=== PATIENT | female | born 1965 | race Caucasian/White ===

== ENCOUNTER 2019-12-14 09:25 | Outpatient (CLI) | payer OTHER ==
--- NOTE | 2019-12-14 10:18 | MMO ---
Left Breast MAMMO Un[facility]ag [facility] LT+[facility]. CLINICAL HISTORY: Patient is 54 years old and is seen for follow-up at short-interval from prior study. The patient has no family history of breast cancer. The patient has no personal history of cancer. VIEWS: The views performed were: left craniocaudal with tomosynthesis; left craniocaudal spot compression with tomosynthesis; left mediolateral oblique with tomosynthesis; left mediolateral with tomosynthesis; and left mediolateral spot compression with tomosynthesis. FILMS COMPARED: The present examination has been compared to prior imaging studies performed at [facility] on 03/17/2013, 04/15/2018, 04/16/2019 and 04/27/2019. This study has been interpreted with the assistance of computer-aided detection. MAMMOGRAM FINDINGS: There are scattered fibroglandular densities. There are stable calcifications seen in the left breast. IMPRESSION: STABLE CALCIFICATIONS IN THE LEFT BREAST ARE PROBABLY BENIGN. FOLLOW-UP IN 6 MONTHS IS RECOMMENDED. THE RESULTS OF THIS EXAM WERE SENT TO THE PATIENT. ACR BI-RADS Category 3 - Probably benign finding - short interval follow-up suggested. [facility] will notify the patient of the need for additional imaging services. MAMMOGRAPHY NOTE: 1. A negative mammogram report should not delay a biopsy if a dominant of clinically suspicious mass is present. 2. Approximately 10% to 15% of breast cancers are not detected by mammography. 3. Adenosis and dense breasts may obscure an underlying neoplasm. Reported by: JOSS COLE MD Electonically Signed: [id number]
== END 2019-12-14 09:26 | disposition home or self-care (01) ==
LOC: BICMAMMO 09:25
PROVIDERS: ATTEND Obstetrics & Gynecology
DX: R92.8 Other abnormal and inconclusive findings on diagnostic imaging of breast (principal); N63.20 Unspecified lump in the left breast, unspecified quadrant
CPT/HCPCS: G0279

== ENCOUNTER 2022-08-29 16:16 | Inpatient (IN) | payer OTHER, BC ==
[~2022-08-29 16:16] MED LIST: Dexamethasone 20 MG/5 ML VIAL ONE; Iopamidol-370 76% 500 ML 1 ML ONE; Lidocaine 1% PF 5 ML VIAL ONE; Ondansetron PF 4 MG/2 ML Vial ONE; PHENYLEPHRINE-NS 100 MCG/ML 10 ML SYRINGE ONE; PROPOFOL 200 MG/20 ML VIAL ONE; Succinylcholine Chloride 100 MG/5 ML SYRINGE FS ONE; ePHEDrine 50 MG/ML VIAL ONE
[2022-08-29] MEDS ORDERED: Ondansetron PF 4 MG/2 ML Vial ONE (16:19)
[2022-08-29] MEDS ORDERED: CEFAZOLIN 2 GM VIAL ONE (16:29)
[2022-08-29] MEDS ORDERED: Morphine 4 MG/ML VIAL ONE (16:29)
[2022-08-29 16:43] LABS: #Eosinphils 0.2 thou/uL (0.0-0.7); #Lymphocytes 2.4 thou/uL (1.20-3.40); #Monocytes 0.4 thou/uL (0.11-0.59); #Neutrophils 5.5 thou/uL (1.40-6.50); %Basophils 0.6 % (0.0-1.0); %Eosinophils 2.1 % (0.0-10.0); %Monocytes 5.1 % (0.0-10.0); %Neutrophils 64.2 % (42.0-75.0); Hemoglobin 13.9 g/dL (12.0-16.0); Mean Corpuscular HGB CONC 33.8 g/dL (32.0-36.0); Mean Corpuscular Hemoglobin 30.2 pg (27.0-31.0); Mean Corpuscular Volume 89.3 fl (78.0-98.0); Mean Platelet Volume 6.9 fL (7.4-10.4); Platelet Count 274 10x3/uL (130-400); RBC Distribution Width 11.5 % (11.5-14.5); Red Blood Cell (RBC) Count 4.62 mill/uL (4.20-5.40); White Blood Cell (WBC) Count 8.6 10x3/uL (4.8-10.8)
[2022-08-29 16:56] LABS: INR-International Normal Ratio 0.9; Prothrombin Time 12.5 sec (12.0-14.7)
[2022-08-29 16:57] LABS: PTT 23.2 sec (22.9-36.1)
[2022-08-29] MEDS ORDERED: Promethazine HCl 25 MG in Sodium Chloride 0.9% 50 ML IVPB SCH (17:15)
[2022-08-29] MEDS ORDERED: Ketamine 50 MG/ML (10ML VIAL) ONE (17:19)
[2022-08-29 17:20] LABS: ALT (SGPT) 86 U/L (8-55); AST (SGOT) 177 U/L (5-34); Albumin 4.5 g/dL (3.5-5.0); Alkaline Phosphatase 97 U/L (40-110); Anion Gap 18 mmol/L (10-20); BUN (Urea Nitrogen) 15 mg/dL (9.8-20.1); Bilirubin, Total 0.6 mg/dL (0.2-1.2); Calc. Creatinine Clearance 144 mL/min (70-130); Calcium 9.9 mg/dL (7.8-10.44); Carbon Dioxide 20 mmol/L (22-29); Chloride 106 mmol/L (98-107); Estimated GFR 86; Globulin 3.1 g/dL (2.4-3.5); Glucose 134 mg/dL (70-105); Lipase 28 U/L (8-78); Potassium 3.7 mmol/L (3.5-5.1); Protein, Total 7.6 g/dL (6.0-8.3); Sodium 140 mmol/L (136-145)
[2022-08-29] MEDS ORDERED: TETANUS, DIPHTHERIA TOX,ADULT (TDVAX) 0.5 ML VIAL IM ONE (18:13)
[2022-08-29] MEDS ORDERED: Dextrose 50% Abboject 50 ML SYRINGE SLOW IVP PRN (18:13)
[2022-08-29] MEDS ORDERED: Dextrose 5% in Water 1,000 ML IV PRN (18:13)
[2022-08-29] MEDS ORDERED: Promethazine HCl 25 MG/ML VIAL IM PRN ×2 (18:14→22:44)
[2022-08-29] MEDS ORDERED: Ondansetron PF 4 MG/2 ML Vial IVP PRN (18:14)
[2022-08-29] MEDS ORDERED: Ondansetron ODT 4 MG TAB PO PRN (18:14)
[2022-08-29] MEDS ORDERED: HumaLOG 300 UNITS/3 ML VIAL SC PRN (18:14)
[2022-08-29] MEDS ORDERED: Labetalol HCl 100 MG/20 ML VIAL SLOW IVP PRN ×2 (18:18→18:21)
[2022-08-29] MEDS ORDERED: hydrALAZINE 20 MG/ML VIAL SLOW IVP PRN (18:21)
[2022-08-29] MEDS ORDERED: Boostrix 0.5 ML (Tdap) VIAL (>/=7 yrs of age) ONE (18:42)
[2022-08-29] MEDS ORDERED: traMADol HCl 50 MG TAB PO SCH (18:45)
[2022-08-29] MEDS ORDERED: Acetaminophen 500 MG TAB PO SCH (18:45)
[2022-08-29] MEDS ORDERED: fentaNYL PF 100 MCG/2 ML SYRINGE ONE ×2 (19:24→23:21)
[2022-08-29] MEDS ORDERED: Neomycin-Polymyxin 1 ML AMP ONE (19:53)
[2022-08-29 20:03] LABS: SARS-CoV-2 NAA Rapid Test Not Detected (NotDetected)
[2022-08-29] MEDS ORDERED: Meperidine HCl/PF 25 MG/ML VIAL SLOW IVP PRN (22:44)
[2022-08-29] MEDS ORDERED: Ondansetron HCl/PF 4 MG/2 ML Vial IVP PRN (22:44)
[2022-08-29] MEDS ORDERED: cefTRIAXone\\ROCEPHIN 2 GM in Sodium Chloride 0.9% 100 ML IVPB SCH (22:45)
[2022-08-29] MEDS ORDERED: Fentanyl 100 MCG/2 ML VIAL ONE (23:59)
[2022-08-30 02:01] VITALS: BMI 46.0
[2022-08-30] MEDS: Famotidine 20 MG TAB PO SCH ×3 (02:31→21:46)
[2022-08-30] MEDS: Gabapentin 300 MG CAP PO SCH ×4 (02:31→21:46)
[2022-08-30] MEDS: Ibuprofen 200 MG TAB PO SCH ×4 (02:31→21:47)
[2022-08-30] MEDS: traMADol HCl 50 MG TAB PO SCH ×4 (02:32→17:41)
[2022-08-30] MEDS: Acetaminophen 500 MG TAB PO SCH ×4 (02:32→17:40)
[2022-08-30] MEDS: Morphine 2 MG/ML VIAL SLOW IVP PRN ×2 (02:50→16:43)
[2022-08-30] MEDS: cefTRIAXone\\ROCEPHIN 2 GM in Sodium Chloride 0.9% 100 ML IVPB SCH (02:53)
[2022-08-30 06:04] LABS: #Lymphocytes 0.7 thou/uL (1.20-3.40); #Monocytes 0.3 thou/uL (0.11-0.59); #Neutrophils 9.2 thou/uL (1.40-6.50); %Eosinophils 0.1 % (0.0-10.0); %Lymphocytes 6.9 % (21.0-51.0); %Monocytes 2.9 % (0.0-10.0); Hemoglobin 11.6 g/dL (12.0-16.0); Mean Corpuscular HGB CONC 33.9 g/dL (32.0-36.0); Mean Corpuscular Hemoglobin 30.7 pg (27.0-31.0); Mean Corpuscular Volume 90.5 fl (78.0-98.0); Platelet Count 223 10x3/uL (130-400); RBC Distribution Width 11.6 % (11.5-14.5); Red Blood Cell (RBC) Count 3.78 mill/uL (4.20-5.40); White Blood Cell (WBC) Count 10.3 10x3/uL (4.8-10.8)
[2022-08-30 06:29] LABS: Anion Gap 15 mmol/L (10-20); BUN (Urea Nitrogen) 16 mg/dL (9.8-20.1); Calc. Creatinine Clearance 122 mL/min (70-130); Carbon Dioxide 25 mmol/L (22-29); Chloride 103 mmol/L (98-107); Estimated GFR 70; Glucose 226 mg/dL (70-105); Magnesium 1.8 mg/dL (1.6-2.6); Phosphorus 2.3 mg/dL (2.3-4.7); Potassium 4.3 mmol/L (3.5-5.1); Sodium 139 mmol/L (136-145)
[2022-08-30] MEDS ORDERED: PHOS-NAK 1 PKT PACK PO SCH (08:00)
[2022-08-30] MEDS ORDERED: Magnesium 2 GM/50 ML(in water) 2 GM in Premix Bag 1 BAG IVPB SCH (08:00)
[2022-08-30] MEDS ORDERED: Insulin Regular 300 UNITS/3 ML VIAL SC PRN ×2 (16:01)
[2022-08-30] MEDS: traMADol HCl 50 MG TAB PO PRN (21:46)
[2022-08-31] MEDS: cefTRIAXone\\ROCEPHIN 2 GM in Sodium Chloride 0.9% 100 ML IVPB SCH (03:39)
[2022-08-31 06:22] LABS: #Eosinphils 0.1 thou/uL (0.0-0.7); #Lymphocytes 1.6 thou/uL (1.20-3.40); #Monocytes 0.8 thou/uL (0.11-0.59); #Neutrophils 6.4 thou/uL (1.40-6.50); %Basophils 0.4 % (0.0-1.0); %Eosinophils 0.9 % (0.0-10.0); %Lymphocytes 18.4 % (21.0-51.0); %Monocytes 8.6 % (0.0-10.0); %Neutrophils 71.8 % (42.0-75.0); Hemoglobin 9.8 g/dL (12.0-16.0); Mean Corpuscular HGB CONC 33.4 g/dL (32.0-36.0); Mean Corpuscular Hemoglobin 30.7 pg (27.0-31.0); Mean Corpuscular Volume 91.9 fl (78.0-98.0); Platelet Count 186 10x3/uL (130-400); RBC Distribution Width 11.6 % (11.5-14.5); White Blood Cell (WBC) Count 8.9 10x3/uL (4.8-10.8)
[2022-08-31 06:44] LABS: Anion Gap 14 mmol/L (10-20); BUN (Urea Nitrogen) 25 mg/dL (9.8-20.1); Calc. Creatinine Clearance 122 mL/min (70-130); Carbon Dioxide 24 mmol/L (22-29); Chloride 105 mmol/L (98-107); Estimated GFR 70; Glucose 167 mg/dL (70-105); Magnesium 2.4 mg/dL (1.6-2.6); Phosphorus 4.6 mg/dL (2.3-4.7); Sodium 139 mmol/L (136-145)
[2022-08-31] MEDS: Acetaminophen 500 MG TAB PO SCH ×4 (06:45→18:22)
[2022-08-31] MEDS: traMADol HCl 50 MG TAB PO SCH ×4 (06:46→18:24)
[2022-08-31] MEDS: Ibuprofen 200 MG TAB PO SCH ×3 (06:46→21:43)
[2022-08-31] MEDS: Gabapentin 300 MG CAP PO SCH ×3 (09:40→21:42)
[2022-08-31] MEDS: Famotidine 20 MG TAB PO SCH ×2 (09:41→21:43)
[2022-08-31] MEDS: Ezetimibe 10 MG TAB PO SCH (09:46)
[2022-08-31] MEDS: Losartan 25 MG TAB PO SCH (09:46)
[2022-08-31] MEDS: PARoxetine 20 MG TAB PO SCH (09:46)
[2022-08-31] MEDS: Bupropion 150 MG XL TAB PO SCH (09:47)
[2022-08-31] MEDS: Nebivolol HCl 5 MG TAB PO SCH (09:47)
[2022-08-31] MEDS: Senokot S 8.6-50 MG TAB PO SCH (21:43)
[2022-08-31] MEDS: traMADol HCl 50 MG TAB PO PRN (21:49)
[2022-09-01] MEDS: Acetaminophen 500 MG TAB PO SCH ×5 (00:17→23:47)
[2022-09-01] MEDS: traMADol HCl 50 MG TAB PO SCH ×5 (00:17→23:47)
[2022-09-01] MEDS: cefTRIAXone\\ROCEPHIN 2 GM in Sodium Chloride 0.9% 100 ML IVPB SCH (03:42)
[2022-09-01] MEDS: Ibuprofen 200 MG TAB PO SCH (04:35)
[2022-09-01 06:19] LABS: #Eosinphils 0.3 thou/uL (0.0-0.7); #Lymphocytes 2.2 thou/uL (1.20-3.40); #Monocytes 0.5 thou/uL (0.11-0.59); #Neutrophils 5.2 thou/uL (1.40-6.50); %Basophils 0.5 % (0.0-1.0); %Eosinophils 4.1 % (0.0-10.0); %Lymphocytes 26.6 % (21.0-51.0); %Monocytes 6.2 % (0.0-10.0); %Neutrophils 62.6 % (42.0-75.0); Hemoglobin 9.9 g/dL (12.0-16.0); Mean Corpuscular HGB CONC 33.6 g/dL (32.0-36.0); Mean Corpuscular Hemoglobin 30.8 pg (27.0-31.0); Mean Corpuscular Volume 91.7 fl (78.0-98.0); Platelet Count 192 10x3/uL (130-400); RBC Distribution Width 11.6 % (11.5-14.5); White Blood Cell (WBC) Count 8.3 10x3/uL (4.8-10.8)
[2022-09-01 06:29] LABS: Anion Gap 15 mmol/L (10-20); BUN (Urea Nitrogen) 23 mg/dL (9.8-20.1); Calc. Creatinine Clearance 143 mL/min (70-130); Calcium 8.9 mg/dL (7.8-10.44); Carbon Dioxide 25 mmol/L (22-29); Chloride 105 mmol/L (98-107); Estimated GFR 85; Glucose 135 mg/dL (70-105); Magnesium 2.1 mg/dL (1.6-2.6); Phosphorus 3.8 mg/dL (2.3-4.7); Potassium 4.2 mmol/L (3.5-5.1); Sodium 141 mmol/L (136-145)
[2022-09-01] MEDS: Polyethylene Glycol 3350 17 GM Packet PO SCH (07:40)
[2022-09-01] MEDS: Losartan 25 MG TAB PO SCH (07:41)
[2022-09-01] MEDS: Milk Of Magnesia 30 ML UDCUP PO SCH (07:41)
[2022-09-01] MEDS: PARoxetine 20 MG TAB PO SCH (07:42)
[2022-09-01] MEDS: Famotidine 20 MG TAB PO SCH ×2 (07:42→20:38)
[2022-09-01] MEDS: Bisacodyl 10 MG SUPP PR SCH (07:42)
[2022-09-01] MEDS: Bupropion 150 MG XL TAB PO SCH (07:43)
[2022-09-01] MEDS: Gabapentin 300 MG CAP PO SCH ×3 (07:43→20:38)
[2022-09-01] MEDS: Senokot S 8.6-50 MG TAB PO SCH ×2 (07:44→20:38)
[2022-09-01] MEDS: Ezetimibe 10 MG TAB PO SCH (07:45)
[2022-09-01] MEDS: Nebivolol HCl 5 MG TAB PO SCH (07:47)
[2022-09-01] MEDS: Ibuprofen 200 MG TAB PO PRN (14:49)
[2022-09-01] MEDS: traMADol HCl 50 MG TAB PO PRN (16:02)
[2022-09-01] MEDS: Cyclobenzaprine 10 MG TAB PO PRN (21:39)
[2022-09-02 05:58] LABS: #Eosinphils 0.3 thou/uL (0.0-0.7); %Eosinophils 3.7 % (0.0-10.0); %Monocytes 5.7 % (0.0-10.0); RBC Distribution Width 11.6 % (11.5-14.5)
[2022-09-02] MEDS: Cyclobenzaprine 10 MG TAB PO PRN ×2 (06:22→20:35)
[2022-09-02] MEDS: Acetaminophen 500 MG TAB PO SCH ×4 (06:22→23:18)
[2022-09-02] MEDS: traMADol HCl 50 MG TAB PO SCH ×4 (06:24→23:19)
[2022-09-02 06:32] LABS: #Lymphocytes 1.7 thou/uL (1.20-3.40); #Monocytes 0.4 thou/uL (0.11-0.59); #Neutrophils 4.8 thou/uL (1.40-6.50); %Basophils 0.2 % (0.0-1.0); %Lymphocytes 23.2 % (21.0-51.0); %Neutrophils 67.2 % (42.0-75.0); Mean Corpuscular HGB CONC 32.8 g/dL (32.0-36.0); Mean Corpuscular Volume 91.5 fl (78.0-98.0); Mean Platelet Volume 7.1 fL (7.4-10.4); Platelet Count 219 10x3/uL (130-400); Red Blood Cell (RBC) Count 3.32 mill/uL (4.20-5.40); White Blood Cell (WBC) Count 7.1 10x3/uL (4.8-10.8)
[2022-09-02] MEDS: Polyethylene Glycol 3350 17 GM Packet PO SCH (08:58)
[2022-09-02] MEDS: Losartan 25 MG TAB PO SCH (09:00)
[2022-09-02] MEDS: Senokot S 8.6-50 MG TAB PO SCH ×2 (09:00→20:33)
[2022-09-02] MEDS: PARoxetine 20 MG TAB PO SCH (09:00)
[2022-09-02] MEDS: Bupropion 150 MG XL TAB PO SCH (09:01)
[2022-09-02] MEDS: Ezetimibe 10 MG TAB PO SCH (09:01)
[2022-09-02] MEDS: Famotidine 20 MG TAB PO SCH ×2 (09:01→20:34)
[2022-09-02] MEDS: Nebivolol HCl 5 MG TAB PO SCH (09:01)
[2022-09-02] MEDS: Gabapentin 300 MG CAP PO SCH ×3 (09:02→20:34)
[2022-09-02] MEDS: Ibuprofen 200 MG TAB PO PRN (09:02)
[2022-09-02] MEDS: traMADol HCl 50 MG TAB PO PRN ×2 (09:03→15:31)
[2022-09-02] MEDS: Milk Of Magnesia 30 ML UDCUP PO SCH (09:05)
[2022-09-02] MEDS: Bisacodyl 10 MG SUPP PR SCH (09:06)
[2022-09-02] MEDS: Lidocaine 5% Patch TD SCH (21:22)
[2022-09-03] MEDS: Acetaminophen 500 MG TAB PO SCH ×4 (05:42→23:47)
[2022-09-03] MEDS: traMADol HCl 50 MG TAB PO SCH ×4 (05:43→23:47)
[2022-09-03] MEDS: Nebivolol HCl 5 MG TAB PO SCH (07:34)
[2022-09-03] MEDS: Losartan 25 MG TAB PO SCH (07:35)
[2022-09-03] MEDS: Senokot S 8.6-50 MG TAB PO SCH ×2 (08:34→19:48)
[2022-09-03] MEDS: Bupropion 150 MG XL TAB PO SCH (08:34)
[2022-09-03] MEDS: Polyethylene Glycol 3350 17 GM Packet PO SCH (08:34)
[2022-09-03] MEDS: Milk Of Magnesia 30 ML UDCUP PO SCH (08:34)
[2022-09-03] MEDS: Famotidine 20 MG TAB PO SCH ×2 (08:34→20:59)
[2022-09-03] MEDS: Gabapentin 300 MG CAP PO SCH ×3 (08:35→20:59)
[2022-09-03] MEDS: Ezetimibe 10 MG TAB PO SCH (08:35)
[2022-09-03] MEDS: Ibuprofen 200 MG TAB PO PRN ×2 (08:35→16:45)
[2022-09-03] MEDS: PARoxetine 20 MG TAB PO SCH (08:35)
[2022-09-03] MEDS: Transdermal Patch Removal TOP SCH (08:36)
[2022-09-03] MEDS: Bisacodyl 10 MG SUPP PR SCH (13:01)
[2022-09-03] MEDS: Lidocaine 5% Patch TD SCH (20:59)
[2022-09-04] MEDS: traMADol HCl 50 MG TAB PO SCH ×4 (06:13→20:55)
[2022-09-04] MEDS: Acetaminophen 500 MG TAB PO SCH ×4 (06:13→23:11)
[2022-09-04] MEDS: Nebivolol HCl 5 MG TAB PO SCH (09:45)
[2022-09-04] MEDS: Gabapentin 300 MG CAP PO SCH ×3 (09:46→20:52)
[2022-09-04] MEDS: Ezetimibe 10 MG TAB PO SCH (09:46)
[2022-09-04] MEDS: Bupropion 150 MG XL TAB PO SCH (09:46)
[2022-09-04] MEDS: PARoxetine 20 MG TAB PO SCH (09:46)
[2022-09-04] MEDS: Famotidine 20 MG TAB PO SCH ×2 (09:46→20:52)
[2022-09-04] MEDS: Losartan 25 MG TAB PO SCH (09:46)
[2022-09-04] MEDS: Ibuprofen 200 MG TAB PO PRN ×2 (09:47→20:55)
[2022-09-04] MEDS: Milk Of Magnesia 30 ML UDCUP PO SCH (09:48)
[2022-09-04] MEDS: Transdermal Patch Removal TOP SCH (09:48)
[2022-09-04] MEDS: Senokot S 8.6-50 MG TAB PO SCH ×2 (09:48→20:52)
[2022-09-04] MEDS: Bisacodyl 10 MG SUPP PR SCH (09:48)
[2022-09-04] MEDS: Polyethylene Glycol 3350 17 GM Packet PO SCH (09:52)
[2022-09-04] MEDS: Cyclobenzaprine 10 MG TAB PO PRN (20:55)
[2022-09-04] MEDS: Lidocaine 5% Patch TD SCH (20:56)
[2022-09-05] MEDS: Acetaminophen 500 MG TAB PO SCH ×3 (04:52→18:25)
[2022-09-05] MEDS: traMADol HCl 50 MG TAB PO SCH ×3 (04:52→18:25)
[2022-09-05] MEDS: Bisacodyl 10 MG SUPP PR SCH (09:01)
[2022-09-05] MEDS: Ezetimibe 10 MG TAB PO SCH (09:01)
[2022-09-05] MEDS: Senokot S 8.6-50 MG TAB PO SCH ×2 (09:02→20:23)
[2022-09-05] MEDS: Milk Of Magnesia 30 ML UDCUP PO SCH (09:02)
[2022-09-05] MEDS: Nebivolol HCl 5 MG TAB PO SCH (10:03)
[2022-09-05] MEDS ORDERED: HYDROmorphone 0.5 MG/0.5 ML SYRINGE ONE (10:26)
[2022-09-05] MEDS: Famotidine 20 MG TAB PO SCH ×2 (10:55→20:24)
[2022-09-05] MEDS: Gabapentin 300 MG CAP PO SCH ×3 (10:55→20:24)
[2022-09-05] MEDS: Transdermal Patch Removal TOP SCH (10:56)
[2022-09-05] MEDS ORDERED: Sodium Chloride 0.9% 100 ML ONE (12:09)
[2022-09-05] MEDS ORDERED: CEFAZOLIN 2 GM VIAL ONE (12:09)
[2022-09-05] MEDS ORDERED: Promethazine HCl 25 MG/ML VIAL ONE (12:20)
[2022-09-05] MEDS ORDERED: PROPOFOL 200 MG/20 ML VIAL ONE (12:20)
[2022-09-05] MEDS ORDERED: Metoclopramide HCl 10 MG/2 ML VIAL ONE (12:20)
[2022-09-05] MEDS ORDERED: Lidocaine 1% PF 5 ML VIAL ONE (12:20)
[2022-09-05] MEDS ORDERED: Ondansetron PF 4 MG/2 ML Vial ONE (12:20)
[2022-09-05] MEDS ORDERED: Ketorolac Tromethamine 30 MG/ML VIAL ONE (12:20)
[2022-09-05] MEDS ORDERED: CEFAZOLIN 2 GM in Sodium Chloride 0.9% 100 ML IVPB SCH (12:30)
[2022-09-05] MEDS: Bupropion 150 MG XL TAB PO SCH (12:47)
[2022-09-05] MEDS: PARoxetine 20 MG TAB PO SCH (12:47)
[2022-09-05] MEDS: Losartan 25 MG TAB PO SCH (12:47)
[2022-09-05] MEDS ORDERED: Metoprolol Tartrate 5 MG/5 ML VIAL ONE (15:20)
[2022-09-05] MEDS ORDERED: Fentanyl 100 MCG/2 ML VIAL ONE (15:29)
[2022-09-05] MEDS ORDERED: hydrALAZINE 20 MG/ML VIAL ONE (15:42)
[2022-09-05] MEDS ORDERED: Promethazine HCl 25 MG/ML VIAL IM/IV PRN (15:45)
[2022-09-05] MEDS ORDERED: Ondansetron HCl/PF 4 MG/2 ML Vial IVP PRN (15:45)
[2022-09-05] MEDS: Ibuprofen 200 MG TAB PO PRN (20:24)
[2022-09-05] MEDS: Cyclobenzaprine 10 MG TAB PO PRN (20:24)
[2022-09-05] MEDS: Lidocaine 5% Patch TD SCH (21:14)
[2022-09-06] MEDS: traMADol HCl 50 MG TAB PO SCH ×3 (00:18→12:40)
[2022-09-06] MEDS: Acetaminophen 500 MG TAB PO SCH ×3 (00:19→12:41)
[2022-09-06 06:37] LABS: #Eosinphils 0.2 thou/uL (0.0-0.7); #Monocytes 0.8 thou/uL (0.11-0.59); #Neutrophils 8.2 thou/uL (1.40-6.50); %Monocytes 8.1 % (0.0-10.0); %Neutrophils 79.9 % (42.0-75.0); Hemoglobin 9.6 g/dL (12.0-16.0); Mean Corpuscular HGB CONC 32.3 g/dL (32.0-36.0); Mean Corpuscular Hemoglobin 30.1 pg (27.0-31.0); Mean Corpuscular Volume 93.3 fl (78.0-98.0); Mean Platelet Volume 6.6 fL (7.4-10.4); Platelet Count 266 10x3/uL (130-400); RBC Distribution Width 12.3 % (11.5-14.5); White Blood Cell (WBC) Count 10.2 10x3/uL (4.8-10.8)
[2022-09-06 06:59] LABS: Anion Gap 14 mmol/L (10-20); BUN (Urea Nitrogen) 14 mg/dL (9.8-20.1); Calc. Creatinine Clearance 150 mL/min (70-130); Carbon Dioxide 24 mmol/L (22-29); Chloride 103 mmol/L (98-107); Estimated GFR 90; Glucose 138 mg/dL (70-105); Magnesium 2.1 mg/dL (1.6-2.6); Phosphorus 3.2 mg/dL (2.3-4.7); Potassium 4.3 mmol/L (3.5-5.1); Sodium 137 mmol/L (136-145)
[2022-09-06] MEDS: Ibuprofen 200 MG TAB PO PRN (07:41)
[2022-09-06] MEDS: Cyclobenzaprine 10 MG TAB PO PRN (07:41)
[2022-09-06] MEDS: Losartan 25 MG TAB PO SCH (09:06)
[2022-09-06] MEDS: Nebivolol HCl 5 MG TAB PO SCH (09:06)
[2022-09-06] MEDS: Gabapentin 300 MG CAP PO SCH ×3 (09:07→21:08)
[2022-09-06] MEDS: traMADol HCl 50 MG TAB PO PRN (09:07)
[2022-09-06] MEDS: Famotidine 20 MG TAB PO SCH ×2 (09:07→21:09)
[2022-09-06] MEDS: Bupropion 150 MG XL TAB PO SCH (09:08)
[2022-09-06] MEDS: PARoxetine 20 MG TAB PO SCH (09:08)
[2022-09-06] MEDS: Ascorbic Acid 500 mg Chewable Tablet PO SCH ×2 (09:08→21:09)
[2022-09-06] MEDS: Ezetimibe 10 MG TAB PO SCH (09:08)
[2022-09-06] MEDS: Milk Of Magnesia 30 ML UDCUP PO SCH (09:09)
[2022-09-06] MEDS: Bisacodyl 10 MG SUPP PR SCH (09:09)
[2022-09-06] MEDS: Senokot S 8.6-50 MG TAB PO SCH ×2 (09:09→21:09)
[2022-09-06] MEDS: Transdermal Patch Removal TOP SCH (09:09)
[2022-09-06] MEDS: Morphine 2 MG/ML VIAL SLOW IVP PRN (10:43)
[2022-09-06] MEDS: Acetaminophen/Codeine 30-300mg Tablet PO SCH (18:52)
[2022-09-06] MEDS: Ferrous Sulfate 325 MG TAB PO SCH (18:53)
[2022-09-06] MEDS: Lidocaine 5% Patch TD SCH (21:09)
[2022-09-07] MEDS: Acetaminophen/Codeine 30-300mg Tablet PO SCH ×4 (00:40→16:56)
[2022-09-07 06:00] LABS: Hemoglobin 9.4 g/dL (12.0-16.0)
[2022-09-07] MEDS: PARoxetine 20 MG TAB PO SCH (08:18)
[2022-09-07] MEDS: Gabapentin 300 MG CAP PO SCH ×3 (08:18→21:59)
[2022-09-07] MEDS: Senokot S 8.6-50 MG TAB PO SCH ×2 (08:18→22:30)
[2022-09-07] MEDS: Ferrous Sulfate 325 MG TAB PO SCH ×2 (08:18→16:56)
[2022-09-07] MEDS: Losartan 25 MG TAB PO SCH (08:19)
[2022-09-07] MEDS: Bupropion 150 MG XL TAB PO SCH (08:19)
[2022-09-07] MEDS: Ascorbic Acid 500 mg Chewable Tablet PO SCH ×2 (08:19→21:59)
[2022-09-07] MEDS: Nebivolol HCl 5 MG TAB PO SCH (08:19)
[2022-09-07] MEDS: Famotidine 20 MG TAB PO SCH ×2 (08:19→21:59)
[2022-09-07] MEDS: Milk Of Magnesia 30 ML UDCUP PO SCH (08:20)
[2022-09-07] MEDS: Ezetimibe 10 MG TAB PO SCH (08:20)
[2022-09-07] MEDS: Bisacodyl 10 MG SUPP PR SCH (08:20)
[2022-09-07] MEDS: Transdermal Patch Removal TOP SCH (08:20)
[2022-09-07] MEDS: Cyclobenzaprine 10 MG TAB PO PRN (21:59)
[2022-09-07] MEDS: Lidocaine 5% Patch TD SCH (22:00)
[2022-09-08] MEDS: Acetaminophen/Codeine 30-300mg Tablet PO SCH ×4 (00:07→17:31)
[2022-09-08] MEDS: traMADol HCl 50 MG TAB PO PRN ×2 (06:27→22:10)
[2022-09-08] MEDS: Ibuprofen 200 MG TAB PO PRN (06:27)
[2022-09-08] MEDS: Morphine 2 MG/ML VIAL SLOW IVP PRN (06:31)
[2022-09-08] MEDS: Ferrous Sulfate 325 MG TAB PO SCH ×2 (10:13→17:33)
[2022-09-08] MEDS: Ascorbic Acid 500 mg Chewable Tablet PO SCH ×2 (10:14→22:11)
[2022-09-08] MEDS: Bisacodyl 10 MG SUPP PR SCH (10:14)
[2022-09-08] MEDS: Transdermal Patch Removal TOP SCH (10:15)
[2022-09-08] MEDS: Senokot S 8.6-50 MG TAB PO SCH ×2 (10:16→22:10)
[2022-09-08] MEDS: Famotidine 20 MG TAB PO SCH ×2 (10:16→22:10)
[2022-09-08] MEDS: PARoxetine 20 MG TAB PO SCH (10:16)
[2022-09-08] MEDS: Losartan 25 MG TAB PO SCH (10:17)
[2022-09-08] MEDS: Nebivolol HCl 5 MG TAB PO SCH (10:17)
[2022-09-08] MEDS: Gabapentin 300 MG CAP PO SCH ×3 (10:18→22:10)
[2022-09-08] MEDS: Bupropion 150 MG XL TAB PO SCH (10:18)
[2022-09-08] MEDS: Ezetimibe 10 MG TAB PO SCH (10:18)
[2022-09-08] MEDS: Milk Of Magnesia 30 ML UDCUP PO SCH (10:19)
[2022-09-08] MEDS: Cyclobenzaprine 10 MG TAB PO PRN (22:09)
[2022-09-08] MEDS: Lidocaine 5% Patch TD SCH (22:11)
[2022-09-09] MEDS: Acetaminophen/Codeine 30-300mg Tablet PO SCH ×4 (00:36→18:52)
[2022-09-09] MEDS: Losartan 25 MG TAB PO SCH (10:25)
[2022-09-09] MEDS: Bupropion 150 MG XL TAB PO SCH (10:25)
[2022-09-09] MEDS: PARoxetine 20 MG TAB PO SCH (10:26)
[2022-09-09] MEDS: Ascorbic Acid 500 mg Chewable Tablet PO SCH ×2 (10:26→21:21)
[2022-09-09] MEDS: Famotidine 20 MG TAB PO SCH ×2 (10:26→21:20)
[2022-09-09] MEDS: Gabapentin 300 MG CAP PO SCH ×3 (10:26→21:20)
[2022-09-09] MEDS: Ezetimibe 10 MG TAB PO SCH (10:26)
[2022-09-09] MEDS: Ferrous Sulfate 325 MG TAB PO SCH ×2 (10:26→18:53)
[2022-09-09] MEDS: Nebivolol HCl 5 MG TAB PO SCH (10:26)
[2022-09-09] MEDS: Transdermal Patch Removal TOP SCH (10:27)
[2022-09-09] MEDS: Milk Of Magnesia 30 ML UDCUP PO SCH (10:27)
[2022-09-09] MEDS: Senokot S 8.6-50 MG TAB PO SCH ×2 (10:27→21:21)
[2022-09-09] MEDS: Lidocaine 5% Patch TD SCH (21:21)
[2022-09-10] MEDS: Acetaminophen/Codeine 30-300mg Tablet PO SCH ×2 (00:27→06:36)
[2022-09-10] MEDS: Nebivolol HCl 5 MG TAB PO SCH (10:05)
[2022-09-10] MEDS: Famotidine 20 MG TAB PO SCH ×2 (10:06→20:05)
[2022-09-10] MEDS: Ezetimibe 10 MG TAB PO SCH (10:06)
[2022-09-10] MEDS: PARoxetine 20 MG TAB PO SCH (10:06)
[2022-09-10] MEDS: Losartan 25 MG TAB PO SCH (10:06)
[2022-09-10] MEDS: Gabapentin 300 MG CAP PO SCH ×3 (10:07→20:05)
[2022-09-10] MEDS: Ferrous Sulfate 325 MG TAB PO SCH ×2 (10:07→18:30)
[2022-09-10] MEDS: Bupropion 150 MG XL TAB PO SCH (10:07)
[2022-09-10] MEDS: Ascorbic Acid 500 mg Chewable Tablet PO SCH ×2 (10:07→20:05)
[2022-09-10] MEDS: Senokot S 8.6-50 MG TAB PO SCH ×2 (10:08→20:05)
[2022-09-10] MEDS: Transdermal Patch Removal TOP SCH (10:08)
[2022-09-10] MEDS: Milk Of Magnesia 30 ML UDCUP PO SCH (10:08)
[2022-09-10] MEDS: Acetaminophen 325 MG TAB PO SCH ×3 (12:51→23:10)
[2022-09-10] MEDS: Cyclobenzaprine 10 MG TAB PO PRN ×2 (16:15→23:11)
[2022-09-10] MEDS: Ibuprofen 200 MG TAB PO PRN ×2 (16:15→23:10)
[2022-09-10] MEDS: Lidocaine 5% Patch TD SCH (20:34)
[2022-09-11] MEDS: Acetaminophen 325 MG TAB PO SCH ×3 (05:41→18:32)
[2022-09-11] MEDS: Ascorbic Acid 500 mg Chewable Tablet PO SCH ×2 (09:40→19:40)
[2022-09-11] MEDS: Ezetimibe 10 MG TAB PO SCH (09:40)
[2022-09-11] MEDS: Famotidine 20 MG TAB PO SCH ×2 (09:41→19:40)
[2022-09-11] MEDS: Scopolamine 1.5 mg/72 hour Patch TD SCH (09:41)
[2022-09-11] MEDS: Gabapentin 300 MG CAP PO SCH ×3 (09:41→19:40)
[2022-09-11] MEDS: Bupropion 150 MG XL TAB PO SCH (09:41)
[2022-09-11] MEDS: Ferrous Sulfate 325 MG TAB PO SCH ×2 (09:42→18:32)
[2022-09-11] MEDS: PARoxetine 20 MG TAB PO SCH (09:43)
[2022-09-11] MEDS: Milk Of Magnesia 30 ML UDCUP PO SCH (09:43)
[2022-09-11] MEDS: Nebivolol HCl 5 MG TAB PO SCH (09:43)
[2022-09-11] MEDS: Losartan 25 MG TAB PO SCH (09:43)
[2022-09-11] MEDS: Senokot S 8.6-50 MG TAB PO SCH ×2 (09:44→19:39)
[2022-09-11] MEDS: Transdermal Patch Removal TOP SCH (09:44)
[2022-09-11] MEDS: Ibuprofen 200 MG TAB PO PRN (11:44)
[2022-09-11] MEDS: Cyclobenzaprine 10 MG TAB PO PRN ×2 (11:44→19:39)
[2022-09-11] MEDS: Acetaminophen/Codeine 30-300mg Tablet PO PRN (14:04)
[2022-09-11] MEDS: Lidocaine 5% Patch TD SCH (19:50)
[2022-09-12] MEDS: Ibuprofen 200 MG TAB PO PRN (00:14)
[2022-09-12] MEDS: Acetaminophen 325 MG TAB PO SCH ×4 (00:14→17:56)
[2022-09-12] MEDS: Cyclobenzaprine 10 MG TAB PO PRN (06:14)
[2022-09-12] MEDS: Losartan 25 MG TAB PO SCH (08:41)
[2022-09-12] MEDS: PARoxetine 20 MG TAB PO SCH (08:41)
[2022-09-12] MEDS: Famotidine 20 MG TAB PO SCH ×2 (08:41→20:10)
[2022-09-12] MEDS: Ferrous Sulfate 325 MG TAB PO SCH ×2 (08:41→17:56)
[2022-09-12] MEDS: Ascorbic Acid 500 mg Chewable Tablet PO SCH ×2 (08:41→20:09)
[2022-09-12] MEDS: Gabapentin 300 MG CAP PO SCH ×3 (08:42→20:10)
[2022-09-12] MEDS: Bupropion 150 MG XL TAB PO SCH (08:42)
[2022-09-12] MEDS: Ezetimibe 10 MG TAB PO SCH (08:42)
[2022-09-12] MEDS: Milk Of Magnesia 30 ML UDCUP PO SCH (08:43)
[2022-09-12] MEDS: Nebivolol HCl 5 MG TAB PO SCH (08:43)
[2022-09-12] MEDS: Senokot S 8.6-50 MG TAB PO SCH ×2 (09:07→20:09)
[2022-09-12] MEDS: Transdermal Patch Removal TOP SCH (09:10)
[2022-09-12] MEDS: Acetaminophen/Codeine 30-300mg Tablet PO PRN ×2 (10:37→17:57)
[2022-09-12] MEDS: Lidocaine 5% Patch TD SCH (20:11)
[2022-09-13] MEDS: Acetaminophen/Codeine 30-300mg Tablet PO PRN ×3 (00:11→16:05)
[2022-09-13] MEDS: Acetaminophen 325 MG TAB PO SCH ×5 (00:14→23:46)
[2022-09-13] MEDS: Losartan 25 MG TAB PO SCH (08:49)
[2022-09-13] MEDS: PARoxetine 20 MG TAB PO SCH (08:49)
[2022-09-13] MEDS: Bupropion 150 MG XL TAB PO SCH (08:49)
[2022-09-13] MEDS: Ezetimibe 10 MG TAB PO SCH (08:49)
[2022-09-13] MEDS: Gabapentin 300 MG CAP PO SCH ×3 (08:50→20:34)
[2022-09-13] MEDS: Famotidine 20 MG TAB PO SCH ×2 (08:50→20:34)
[2022-09-13] MEDS: Ferrous Sulfate 325 MG TAB PO SCH ×2 (08:50→16:06)
[2022-09-13] MEDS: Ascorbic Acid 500 mg Chewable Tablet PO SCH ×2 (08:50→20:35)
[2022-09-13] MEDS: Milk Of Magnesia 30 ML UDCUP PO SCH (08:55)
[2022-09-13] MEDS: Transdermal Patch Removal TOP SCH (08:55)
[2022-09-13] MEDS: Senokot S 8.6-50 MG TAB PO SCH ×2 (08:55→20:35)
[2022-09-13] MEDS: Nebivolol HCl 5 MG TAB PO SCH (08:56)
[2022-09-13] MEDS: Ibuprofen 200 MG TAB PO PRN (20:32)
[2022-09-13] MEDS: Cyclobenzaprine 10 MG TAB PO PRN (20:33)
[2022-09-13] MEDS: Lidocaine 5% Patch TD SCH (20:34)
[2022-09-14] MEDS: Acetaminophen 325 MG TAB PO SCH ×3 (05:29→17:08)
[2022-09-14 06:16] LABS: Platelet Count 336 10x3/uL (130-400)
[2022-09-14] MEDS: Scopolamine 1.5 mg/72 hour Patch TD SCH (09:38)
[2022-09-14] MEDS: Ferrous Sulfate 325 MG TAB PO SCH ×2 (09:39→16:02)
[2022-09-14] MEDS: PARoxetine 20 MG TAB PO SCH (09:39)
[2022-09-14] MEDS: Nebivolol HCl 5 MG TAB PO SCH (09:39)
[2022-09-14] MEDS: Losartan 25 MG TAB PO SCH (09:39)
[2022-09-14] MEDS: Ascorbic Acid 500 mg Chewable Tablet PO SCH ×2 (09:39→20:47)
[2022-09-14] MEDS: Bupropion 150 MG XL TAB PO SCH (09:40)
[2022-09-14] MEDS: Gabapentin 300 MG CAP PO SCH ×3 (09:40→20:48)
[2022-09-14] MEDS: Ezetimibe 10 MG TAB PO SCH (09:40)
[2022-09-14] MEDS: Famotidine 20 MG TAB PO SCH ×2 (09:40→20:47)
[2022-09-14] MEDS: Acetaminophen/Codeine 30-300mg Tablet PO PRN (09:41)
[2022-09-14] MEDS: Transdermal Patch Removal TOP SCH (09:42)
[2022-09-14] MEDS: Milk Of Magnesia 30 ML UDCUP PO SCH (12:04)
[2022-09-14] MEDS: Senokot S 8.6-50 MG TAB PO SCH ×2 (12:05→20:46)
[2022-09-14] MEDS: Cyclobenzaprine 10 MG TAB PO PRN (16:02)
[2022-09-14] MEDS: Lidocaine 5% Patch TD SCH (20:48)
[2022-09-15] MEDS: Acetaminophen/Codeine 30-300mg Tablet PO PRN ×2 (00:46→11:35)
[2022-09-15] MEDS: Acetaminophen 325 MG TAB PO SCH ×5 (00:48→23:52)
[2022-09-15] MEDS: PARoxetine 20 MG TAB PO SCH (08:43)
[2022-09-15] MEDS: Nebivolol HCl 5 MG TAB PO SCH (08:43)
[2022-09-15] MEDS: Losartan 25 MG TAB PO SCH (08:43)
[2022-09-15] MEDS: Ezetimibe 10 MG TAB PO SCH (08:44)
[2022-09-15] MEDS: Bupropion 150 MG XL TAB PO SCH (08:44)
[2022-09-15] MEDS: Gabapentin 300 MG CAP PO SCH ×3 (08:44→20:23)
[2022-09-15] MEDS: Ascorbic Acid 500 mg Chewable Tablet PO SCH ×2 (08:44→20:23)
[2022-09-15] MEDS: Famotidine 20 MG TAB PO SCH ×2 (08:44→20:23)
[2022-09-15] MEDS: Ferrous Sulfate 325 MG TAB PO SCH ×2 (08:44→17:36)
[2022-09-15] MEDS: Transdermal Patch Removal TOP SCH (08:46)
[2022-09-15] MEDS: Senokot S 8.6-50 MG TAB PO SCH ×2 (08:46→20:21)
[2022-09-15] MEDS: Milk Of Magnesia 30 ML UDCUP PO SCH (08:46)
[2022-09-15] MEDS: Cyclobenzaprine 10 MG TAB PO PRN (13:20)
[2022-09-15] MEDS: Ibuprofen 200 MG TAB PO PRN (13:20)
[2022-09-15] MEDS: Lidocaine 5% Patch TD SCH (20:24)
[2022-09-16] MEDS: Acetaminophen 325 MG TAB PO SCH ×3 (05:35→17:25)
[2022-09-16] MEDS: Ezetimibe 10 MG TAB PO SCH (08:08)
[2022-09-16] MEDS: Losartan 25 MG TAB PO SCH (08:08)
[2022-09-16] MEDS: Ascorbic Acid 500 mg Chewable Tablet PO SCH ×2 (08:08→20:20)
[2022-09-16] MEDS: Bupropion 150 MG XL TAB PO SCH (08:08)
[2022-09-16] MEDS: Gabapentin 300 MG CAP PO SCH ×3 (08:09→20:20)
[2022-09-16] MEDS: Famotidine 20 MG TAB PO SCH ×2 (08:09→20:20)
[2022-09-16] MEDS: PARoxetine 20 MG TAB PO SCH (08:09)
[2022-09-16] MEDS: Transdermal Patch Removal TOP SCH (08:09)
[2022-09-16] MEDS: Ferrous Sulfate 325 MG TAB PO SCH ×2 (08:09→16:01)
[2022-09-16] MEDS: Senokot S 8.6-50 MG TAB PO SCH ×2 (08:10→21:00)
[2022-09-16] MEDS: Milk Of Magnesia 30 ML UDCUP PO SCH (08:10)
[2022-09-16] MEDS: Nebivolol HCl 5 MG TAB PO SCH (08:13)
[2022-09-16] MEDS: Acetaminophen/Codeine 30-300mg Tablet PO PRN (16:03)
[2022-09-16] MEDS: Ibuprofen 200 MG TAB PO PRN (17:27)
[2022-09-16] MEDS: Cyclobenzaprine 10 MG TAB PO PRN (20:20)
[2022-09-16] MEDS: Lidocaine 5% Patch TD SCH (20:21)
[2022-09-17] MEDS: Acetaminophen 325 MG TAB PO SCH ×5 (00:03→23:37)
[2022-09-17] MEDS: Nebivolol HCl 5 MG TAB PO SCH (08:34)
[2022-09-17] MEDS: Losartan 25 MG TAB PO SCH (08:35)
[2022-09-17] MEDS: Ascorbic Acid 500 mg Chewable Tablet PO SCH ×2 (08:35→20:19)
[2022-09-17] MEDS: PARoxetine 20 MG TAB PO SCH (08:35)
[2022-09-17] MEDS: Bupropion 150 MG XL TAB PO SCH (08:35)
[2022-09-17] MEDS: Famotidine 20 MG TAB PO SCH ×2 (08:36→20:19)
[2022-09-17] MEDS: Senokot S 8.6-50 MG TAB PO SCH ×2 (08:36→20:19)
[2022-09-17] MEDS: Ferrous Sulfate 325 MG TAB PO SCH ×2 (08:36→18:23)
[2022-09-17] MEDS: Gabapentin 300 MG CAP PO SCH ×3 (08:36→20:19)
[2022-09-17] MEDS: Ezetimibe 10 MG TAB PO SCH (08:36)
[2022-09-17] MEDS: Milk Of Magnesia 30 ML UDCUP PO SCH (08:36)
[2022-09-17] MEDS: Scopolamine 1.5 mg/72 hour Patch TD SCH (08:38)
[2022-09-17] MEDS: Transdermal Patch Removal TOP SCH (08:38)
[2022-09-17] MEDS: Lidocaine 5% Patch TD SCH (20:25)
[2022-09-18] MEDS: Acetaminophen 325 MG TAB PO SCH ×3 (05:49→18:01)
[2022-09-18] MEDS: Ferrous Sulfate 325 MG TAB PO SCH ×2 (09:25→18:01)
[2022-09-18] MEDS: Senokot S 8.6-50 MG TAB PO SCH ×2 (09:25→20:39)
[2022-09-18] MEDS: Gabapentin 300 MG CAP PO SCH ×3 (09:26→20:39)
[2022-09-18] MEDS: Ezetimibe 10 MG TAB PO SCH (09:26)
[2022-09-18] MEDS: PARoxetine 20 MG TAB PO SCH (09:26)
[2022-09-18] MEDS: Famotidine 20 MG TAB PO SCH ×2 (09:27→20:39)
[2022-09-18] MEDS: Ascorbic Acid 500 mg Chewable Tablet PO SCH ×2 (09:27→20:39)
[2022-09-18] MEDS: Losartan 25 MG TAB PO SCH (09:27)
[2022-09-18] MEDS: Milk Of Magnesia 30 ML UDCUP PO SCH (09:28)
[2022-09-18] MEDS: Nebivolol HCl 5 MG TAB PO SCH (09:28)
[2022-09-18] MEDS: Bupropion 150 MG XL TAB PO SCH (09:28)
[2022-09-18] MEDS: Transdermal Patch Removal TOP SCH (09:29)
[2022-09-18] MEDS: Lidocaine 5% Patch TD SCH (20:38)
[2022-09-19] MEDS: Acetaminophen 325 MG TAB PO SCH ×3 (00:05→11:37)
[2022-09-19] MEDS: Ezetimibe 10 MG TAB PO SCH (08:39)
[2022-09-19] MEDS: Ferrous Sulfate 325 MG TAB PO SCH (08:39)
[2022-09-19] MEDS: Bupropion 150 MG XL TAB PO SCH (08:40)
[2022-09-19] MEDS: Famotidine 20 MG TAB PO SCH (08:40)
[2022-09-19] MEDS: Gabapentin 300 MG CAP PO SCH (08:40)
[2022-09-19] MEDS: Losartan 25 MG TAB PO SCH (08:45)
[2022-09-19] MEDS: Ascorbic Acid 500 mg Chewable Tablet PO SCH (08:45)
[2022-09-19] MEDS: PARoxetine 20 MG TAB PO SCH (08:47)
[2022-09-19] MEDS: Nebivolol HCl 5 MG TAB PO SCH (08:49)
[2022-09-19] MEDS: Senokot S 8.6-50 MG TAB PO SCH (08:50)
[2022-09-19] MEDS: Milk Of Magnesia 30 ML UDCUP PO SCH (08:50)
[2022-09-19] MEDS: Transdermal Patch Removal TOP SCH (08:51)
[2022-09-19 09:21] VITALS: BP 167/89; TEMP 98.2
== END 2022-09-19 13:14 | DRG 493 ==
LOC: ERS 16:16 → ERHOLD 18:13 → SURG B 08-30 00:16
PROVIDERS: ADMIT Surgery; ATTEND Surgery
PROC: 0QSJ04Z Reposition Right Fibula with Internal Fixation Device, Open Approach (ICD-10-PCS; principal; 2022-09-05)
PROC: 0QSL34Z Reposition Right Tarsal with Internal Fixation Device, Percutaneous Approach (ICD-10-PCS; 2022-09-05)
PROC: 0QSH04Z Reposition Left Tibia with Internal Fixation Device, Open Approach (ICD-10-PCS; 2022-09-05)
DX: S82.872 Displaced pilon fracture of left tibia (principal); D62 Acute posthemorrhagic anemia; V49.9XXA Car occupant (driver) (passenger) injured in unspecified traffic accident, initial encounter; Z20.822 Contact with and (suspected) exposure to COVID-19; F41.9 Anxiety disorder, unspecified; F32.A Depression, unspecified; E11.9 Type 2 diabetes mellitus without complications; I10 Essential (primary) hypertension; E78.5 Hyperlipidemia, unspecified; S92.102A Unspecified fracture of left talus, initial encounter for closed fracture; S82.51XA Displaced fracture of medial malleolus of right tibia, initial encounter for closed fracture; S92.141A Displaced dome fracture of right talus, initial encounter for closed fracture; S92.351A Displaced fracture of fifth metatarsal bone, right foot, initial encounter for closed fracture; S82.831A Other fracture of upper and lower end of right fibula, initial encounter for closed fracture; S82.302A Unspecified fracture of lower end of left tibia, initial encounter for closed fracture; Z88.2 Allergy status to sulfonamides; Z98.890 Other specified postprocedural states; Z79.899 Other long term (current) drug therapy
CPT/HCPCS: 27752; 27762; 36415; 36416; 71260; 74177; 80048; 80053; 82565; 83690; 83735; 84100; 85014; 85018; 85025; 85049; 85610; 85730; 86850; 86900; 86901; 87811; 90471; 90715; 93005; 96365; 96366; 96367; 96375; 99152; C1713; C1776; C1874; C1889; G0390; J0360; J0696; J1100; J1170; J1650; J1815; J1885; J2270; J2272; J2405; J2550; J2704; J2765; J3010; J3475; J3490; Q9967; U0002